=== PATIENT | female | born 1955 | race Caucasian/White ===

== ENCOUNTER 2019-09-10 07:13 | Inpatient (IN) ==
--- OUTSIDE RECORDS SUMMARY | 2019-09-10 07:15 | External Medical Summary | Continuity of Care Document ---
:1955 Author Name Aicha Muse, Provider Address Unavailable Unavailable , Care Team Providers Name Role Phone Juvenal Logan M.D., I. Unavailable [email or web address] Unavailable Unavailable Unavailable Unavailable Assessments Assessment Narrative:61 yo female with negative hematuria workup.Assessed Problems:Microscopic hematuria Problems Microscopic hematuria (599.72) (R31.29) Hypertension (401.9) (I10) Arthritis (716.90) (M19.90) Allergies and Adverse Reactions No Known Drug Allergies (Allergy) Medications hydroCHLOROthiazide 25 MG Oral Tablet Refills: 0 Procedures History of Back Surgery Status: Complete d History of Tubal Ligation Status: Comple bennie Immunizations Immunizations not documented Family History Father Family history of cardiac disorder (V17.49) (Z82.49) Status: Active Family history of hypertension (V17.49) (Z82.49) Status: Act aneesh Social History - Smoking Status Current every day smoker Interventions Follow-ups/ReferralsFollow-up as needed; Done: 01 Dec 2016 Plan of Treatment Planned Observations Planned Goals not documented Results No Known Results Results not documented Encounters Appointment; Juvenal Logan M.D. 01-Dec-2016 15:30 Encounter Diagnosis: Problem not documented
--- OUTSIDE RECORDS SUMMARY | 2019-09-10 07:15 | External Medical Summary | Continuity of Care Document ---
:1955 Author Name Aicha Muse, Provider Address Unavailable Unavailable , Care Team Providers Name Role Phone Juvenal Logan M.D., I. Unavailable [email or web address] Unavailable Unavailable Unavailable Unavailable Unavailable Assessments Assessment Narrative:61 yo female with negative hematuria workup.Assessed Problems:Microscopic hematuria Problems Arthritis (716.90) (M19.90) Hypertension (401.9) (I10) Microscopic hematuria (599.72) (R31.29) Allergies and Adverse Reactions No Known Drug [...]
[2019-09-10 07:42] LABS: Basophils # (auto) 0.02 K/uL (0-0.2); Basophils % (auto) 0.2 %; Eosinophils # (auto) 0.26 K/uL (0-0.5); Eosinophils % (auto) 2.7 %; Hematocrit (blood only) 44.3 % (37-47); Immature Granulocytes # (auto) 0.02 K/uL (0.00-0.02); Immature Granulocytes % (auto) 0.2 %; Lymphocytes # (auto) 2.41 K/uL (1.2-3.4); Lymphocytes % (auto) 25.3 %; Mean Corpuscular Hemoglobin 34.7 pg (25-34); Mean Corpuscular Hgb Conc 36.1 g/dL (32-36); Mean Corpuscular Volume 96.1 fL (80-100); Mean Platelet Volume 10.6 fL (7.4-10.4); Monocytes # (auto) 0.68 K/uL (0.11-0.59); Monocytes % (auto) 7.2 %; Neutrophils # (auto) 6.12 K/uL (1.4-6.5); Neutrophils % (auto) 64.4 %; Platelet Count 188 K/uL (130-400); RDW Standard Deviation 42.2 fL (36.4-46.3); Red Blood Count 4.61 M/uL (4.2-5.4); White Blood Count 9.51 K/uL (4.8-10.8)
[2019-09-10 07:54] LABS: D Dimer 720 ug/L FEU (0-500)
--- NOTE | 2019-09-10 07:57 | XRay Report ---
XR chest 1V portable HISTORY: Atypical Chest Pain COMPARISON: None. FINDINGS: The lungs are clear. Cardiac silhouette is normal in size. No pleural effusions. No pneumot horax. IMPRESSION: No acute process. ACT 112: Negative or not required by law. Electronically signed by: Wu Jones M.D. 09/10/2019 7:56 AM
[2019-09-10 07:58] LABS: Albumin Level 3.7 gm/dl (3.4-5.0); Creatinine Clr Calc Pharmacy 66.2 ml/min; Est GFR (African American) 65.9; Est GFR (Non-African American) 56.9; Potassium 3.5 mmol/L (3.5-5.1)
[2019-09-10 08:03] LABS: Albumin Globulin Ratio 0.8 (0.9-2); Bilirubin,Total 0.7 mg/dl (0.2-1); Globulin 4.5 gm/dl (2.5-4.0); Total Protein 8.2 gm/dl (6.4-8.2); Troponin I 0.018 ng/ml (0-0.045)
[2019-09-10] MEDS ORDERED: OPTIRAY 320 125ml IV PRN (08:43)
--- NOTE | 2019-09-10 09:30 | CT Scan Report ---
CT ANGIOGRAPHY OF THE CHEST, PULMONARY EMBOLUS PROTOCOL CLINICAL HISTORY: CP, elevated D dimer COMPARISON STUDY: Chest radiograph September 10, 2019. TECHNIQUE: Following IV administration of 120 mL of Optiray-320, helical axial images of the chest we re obtained utilizing the pulmonary embolus protocol. Maximal intensity projections and sagittal and coronal reformats were viewed on an independent 3D workstation. IV contrast was administered withou t complication. Automated exposure control was utilized for the study. A dose lowering technique wa s utilized adhering to the principles of ALARA. CT DOSE: 600.35 mGy.cm FINDINGS: No pulmonary emboli are identified. There is no evidence for thoracic or dissection althou gh aortic opacification is suboptimal. Size of the heart is at the upper limits of normal. There is n o pericardial effusion. No pneumothorax or pleural effusion is noted. There is mild upper lobe predom inant emphysema. Diffuse bronchial wall thickening is noted with scattered mucous plugging. There is no consolidation to suggest pneumonia. There are no suspicious pulmonary nodules. Bony thorax and upp er abdomen are unremarkable. Asymmetric enlargement of the right thyroid lobe is noted. There is a po ssible right lobe thyroid nodule that measures approximately 2.3 cm. IMPRESSION: 1. No pulmonary emboli identified. 2. Mild upper lobe predominant emphysema. 3. Diffuse bronchial wall thickening. No consolidation to suggest pneumonia. ACT 112: Negative or not required by law. Electronically signed by: Skip Redmond M.D. 09/10/2019 9:28 AM
[2019-09-10] MEDS ORDERED: NITROGLYCERIN SL 0.4 MG/TAB TAB SL STA (10:56)
[2019-09-10] MEDS ORDERED: ASPIRIN CHEW 324 MG PO STA (10:56)
--- NOTE | 2019-09-10 11:06 | History & Physical Report ---
Date of Service September 10, 2019 Assessment & Plan (1) Chest pain: 63yo C female with history of HTN, tobacco use, family history of premature CAD presenting with one month of intermittent chest discomfort. Troponin detectable at 0.018, EKG with some changes from prior, ST-T waves in lateral leads. No STEMI. -Observation to medical floor with telemetry monitoring -Trend troponin q 8 hours x 3 sets. Will initiate heparin gtt if values continue to increase. -Check Lipids and AIC with AM labs for risk stratification -Smoking cessation -2D echocardiogram -Pending results of troponin - stress test in AM, patient would most likely need to have Dobutamine testing, functional limitation from knee pain -Consider Cardiology consultation pending results of above studies Present on Admission?: Yes (2) Shortness of breath: Patient with history of COPD. Has had URI symptoms for the past 2 weeks. No wheezing appreciated on exam. Adequate saturation on room air with no evidence of respiratory distress. -Continue Mucinex -Duoneb q 6 hours -Continue Symbicort -Smoking cessation counseling Present on Admission?: Yes (3) HTN (hypertension): Blood pressure stable at present -Continue HCTZ 25mg po daily -Continue to monitor Present on Admission?: Yes (4) COPD (chronic obstructive pulmonary disease): As above. Patient with history of COPD, cough with sputum. No wheeze -DuoNeb -Symbicort -Mucinex -Smoking cessation F/E/N - Heplock. Monitor electrolytes and replete as needed. AHA diet, NPO after midnight for possible stress vs cath Ppx - Low risk for DVT Code - Full per discussion with patient Dispo - Observation to medical floor with telemetry History of Present Illness Chief Complaint: chest pain Primary Care Provider: DO Millie Vazquezjaime Wu is a pleasant 63yo C female with history of COPD, HTN presenting with chest pain. Symptoms have been intermittent, ongoing and increasing in severity for the past month. Bandlike across upper chest with occasional epigastric discomfort with belching. 10/10 in severity at its worst. Typically occurs in the evenings while she is watching TV or while walking around. She reports occasionally feeling numbness and tingling across her chest as well. Pain is associated with occasional diaphoresis and SOB, radiation down her left arm on occasion. Occurs at rest as well as with exertion. She had an episode this AM around 0100 which was 10/10 in severity, prompted her to come to the ER. Patient is fairly sedentary, states that her activity is limited by knee pain as well as her chest discomfort. She is unable to clearly state that the pain occurs with exertion. Also with cough productive for yellow sputum for the last two weeks. She denies worsening SOB or wheeze. ER Course: ASA 324mg, Nitro 0.4mg Allergies Allergy/AdvReac Type Severity Reaction Status Date / Time No Known Allergies Allergy Unverified 09/10/19 07:56 Home Medications Home Medications Medication Instructions Recorded Confirmed Type budesonide-formoterol [Symbicort] 1 puff INHALATION BID 09/10/19 09/10/19 History guaifenesin [Mucinex] 600 mg PO Q12H PRN 09/10/19 09/10/19 History hydrochlorothiazide 25 mg PO DAILY 09/10/19 09/10/19 History Past Med/Surg History Family History (Updated 09/10/19 @ 12:07 by Serenity Fuentes DO) Father Coronary heart disease [place] at age 45 Sister Coronary heart disease [place] in early 60's Social History Preferred Language: Tajik Communication Ability: Effective [employer] Required: No Beliefs That Will Affect Care: None Current Living Situation: Spouse Feels Safe at Home: Yes Safety Concerns: Feels Safe At This Time Smoking Status: Current every day smoker Tobacco Type: cigarettes ; Cigarettes Per Day: 12 ; Do You Dip or Chew Tobacco: No ; Hx Alcohol Use: No Hx Substance Use: No Review of Systems Review of Systems: All systems reviewed & are unremarkable except as noted in HPI & below Physical Exam Physical Exam: General: patient resting comfortably, NAD, non-toxic in appearance, AA&O x 4, anxious in appearance Skin: warm, dry, intact, no rashes or lesions HEENT: NC/AT, PERRL, EOMI, anicteric sclera, conjunctiva without injection, external ear normal to inspection and nontender, nares patent, moist mucus membranes, dentition intact, no oropharyngeal lesions, neck supple, trachea midline, no LAD, no thyromegaly, no JVD Heart: +S1/S2, regular, no m/r/g, no CW pain, no epigastric discomfort Lungs: diminished breath sounds, equal air entry bilaterally, no rales/rhonchi/wheezes Abd: +BS, soft, NT/ND, no masses/organomegaly/ascites Ext: warm, 2+ pulses in UE/LE bilaterally, no clubbing/cyanosis or edema Neuro: nonfocal, patient AA&O x 4, speech intact, no facial droop, moving all extremities on command with equal strength 5/5 Results & Data Vital Signs (Past 12 Hours) Vital Signs Temp Pulse Pulse Resp BP BP Pulse Ox 09/10/19 11:00 70 18 148/94 H 94 09/10/19 10:30 72 18 137/103 H 97 09/10/19 10:00 73 18 146/104 H 93 09/10/19 09:45 81 18 145/96 H 94 09/10/19 09:30 73 18 146/102 H 94 09/10/19 09:00 74 18 158/99 H 94 09/10/19 08:30 82 18 132/97 93 09/10/19 08:00 74 18 137/102 H 93 09/10/19 07:30 78 78 18 147/93 H 95 09/10/19 07:21 36.5 C 80 24 152/105 H 94 Laboratory Results Lab Results 09/10/19 09/10/19 09/10/19 Range/Units 07:29 07:29 07:29 WBC 9.51 (4.8-10.8) K/uL RBC 4.61 (4.2-5.4) M/uL Hgb 16.0 (12.0-16.0) g/dL Hct 44.3 (37-47) % MCV 96.1 (80-100) fL MCH 34.7 H (25-34) pg MCHC 36.1 H (32-36) g/dL RDW Std Deviation 42.2 (36.4-46.3) fL RDW Coeff of Brad 12.0 (11.5-14.5) % Plt Count 188 (130-400) K/uL MPV 10.6 H (7.4-10.4) fL Immature Gran % (Auto) 0.2 % Neut % (Auto) 64.4 % Lymph % (Auto) 25.3 % [place] % (Auto) 7.2 % Eos % (Auto) 2.7 % Baso % (Auto) 0.2 % Immature Gran # (Auto) 0.02 (0.00-0.02) K/uL Neut # (Auto) 6.12 (1.4-6.5) K/uL Lymph # (Auto) 2.41 (1.2-3.4) K/uL [place] # (Auto) 0.68 H (0.11-0.59) K/uL Eos # (Auto) 0.26 (0-0.5) K/uL Baso # (Auto) 0.02 (0-0.2) K/uL D-Dimer 720 H* (0-500) ug/L FEU Sodium 137 (136-145) mmol/L Potassium 3.5 (3.5-5.1) mmol/L Chloride 99 (98-107) mmol/L Carbon Dioxide 34 H (21-32) mmol/L Anion Gap 5.0 (3-11) BUN 20 H (7-18) mg/dl Creatinine 1.05 (0.6-1.2) mg/dl Est Cr Clr Drug Dosing 66.2 ml/min Est GFR ( Amer) 65.9 Est GFR (Non-Af Amer) 56.9 BUN/Creatinine Ratio 19.0 (10-20) Glucose 131 H (70-99) mg/dl Calcium 9.0 (8.5-10.1) mg/dl Total Bilirubin 0.7 (0.2-1) mg/dl AST 10 L (15-37) U/L ALT 25 (12-78) U/L Alkaline Phosphatase 109 (45-117) U/L Troponin I 0.018 (0-0.045) ng/ml Total Protein 8.2 (6.4-8.2) gm/dl Albumin 3.7 (3.4-5.0) gm/dl Globulin 4.5 H (2.5-4.0) gm/dl Albumin/Globulin Ratio 0.8 L (0.9-2) Lipase 169 (73-393) U/L Diagnostic Findings XR chest 1V portable HISTORY: Atypical Chest Pain COMPARISON: None. FINDINGS: The lungs are clear. Cardiac silhouette is normal in size. No pleural effusions. No pneumothorax. IMPRESSION: No acute process. ACT 112: Negative or not required by law. Electronically signed by: Wu Jones M.D. 09/10/2019 7:56 AM Dictated: 09/10/[address] ANGIOGRAPHY OF THE CHEST, PULMONARY EMBOLUS PROTOCOL CLINICAL HISTORY: CP, elevated D dimer COMPARISON STUDY: Chest radiograph September 10, 2019. TECHNIQUE: Following IV administration of 120 mL of Optiray-320, helical axial images of the chest were obtained utilizing the pulmonary embolus protocol. Maximal intensity projections and sagittal and coronal reformats were viewed on an independent 3D workstation. IV contrast was administered without complication. Automated exposure control was utilized for the study. A dose lowering technique was utilized adhering to the principles of ALARA. CT DOSE: 600.35 mGy.cm FINDINGS: No pulmonary emboli are identified. There is no evidence for thoracic or dissection although aortic opacification is suboptimal. Size of the heart is at the upper limits of normal. There is no pericardial effusion. No pneumothorax or pleural effusion is noted. There is mild upper lobe predominant emphysema. Diffuse bronchial wall thickening is noted with scattered mucous plugging. There is no consolidation to suggest pneumonia. There are no suspicious pulmonary nodules. Bony thorax and upper abdomen are unremarkable. Asymmetric enlargement of the right thyroid lobe is noted. There is a possible right lobe thyroid nodule that measures approximately 2.[address] ANGIOGRAPHY OF THE CHEST, PULMONARY EMBOLUS PROTOCOL CLINICAL HISTORY: CP, elevated D dimer COMPARISON STUDY: Chest radiograph September 10, 2019. TECHNIQUE: Following IV administration of 120 mL of Optiray-320, helical axial images of the chest were obtained utilizing the pulmonary embolus protocol. Maximal intensity projections and sagittal and coronal reformats were viewed on an independent 3D workstation. IV contrast was administered without complication. Automated exposure control was utilized for the study. A dose lowering technique was utilized adhering to the principles of ALARA. CT DOSE: 600.35 mGy.cm FINDINGS: No pulmonary emboli are identified. There is no evidence for thoracic or dissection although aortic opacification is suboptimal. Size of the heart is at the upper limits of normal. There is no pericardial effusion. No pneumothorax or pleural effusion is noted. There is mild upper lobe predominant emphysema. Diffuse bronchial wall thickening is noted with scattered mucous plugging. There is no consolidation to suggest pneumonia. There are no suspicious pulmonary nodules. Bony thorax and upper abdomen are unremarkable. Asymmetric enlargement of the right thyroid lobe is noted. There is a possible right lobe thyroid nodule that measures approximately 2.3 cm. IMPRESSION: 1. No pulmonary emboli identified. 2. Mild upper lobe predominant emphysema. 3. Diffuse bronchial wall thickening. No consolidation to suggest pneumonia. ACT 112: Negative or not required by law. ECG Additional Comments: Study with NSR at 86bpm, normal axis, LR=745, DON=867, FKz=124, ST depressions in I, aVL, V5 and V6 Code Status & VTE Plan Code Status Full Code VTE Prophylaxis Plan VTE Prophylaxis will be ordered: No PG Care Time/CCT Total # of Minutes Spent Total Time Spent with Patient: Total time spent is greater than 50% in coordination of care (as documented) at patient's floor/unit and/or counseling patient: Coding Level of Care Code 13110 OBS Care - Level 2 Diagnoses Chest pain R07.9 Chest pain type: unspecified Shortness of breath R06.02 HTN (hypertension) I10 Hypertension type: essential hypertension COPD (chronic obstructive pulmonary disease) J44.9 COPD type: unspecified COPD (1) COPD (chronic obstructive pulmonary disease) COPD type: unspecified COPD Qualified Code(s): J44.9 - Chronic obstructive pulmonary disease, unspecified (2) Chest pain Chest pain type: unspecified Qualified Code(s): R07.9 - Chest pain, unspecified (3) HTN (hypertension) Hypertension type: essential hypertension Qualified Code(s): I10 - Essential (primary) hypertension
[2019-09-10] MEDS ORDERED: ALBUT/IPRATROP 3MG/0.5MG NEB 3 ML VIAL NEB SCH (11:15)
[2019-09-10] MEDS ORDERED: ALBUT/IPRATROP 3MG/0.5MG NEB 3 ML VIAL ONE (11:26)
[2019-09-10] MEDS ORDERED: ACETAMINOPHEN 325 MG TAB PO PRN (11:48)
[2019-09-10] MEDS ORDERED: ONDANSETRON INJ 2 MG/ML 2 ML VIAL IV PRN (11:48)
--- NOTE | 2019-09-10 11:58 | Emergency Department Note ---
ED Visit Note I assisted Dr. Wetzel with the care of this patient . Resident Activity Tracking Resident Involvement: Resident Care Provided Care Provided: Adult ED : Chest pain Qualifiers: Chest pain type: unspecified Qualified Code(s): R07.9 - Chest pain, unspecified
[2019-09-10] MEDS ORDERED: guaiFENesin 600 MG TABCR PO PRN (12:45)
[2019-09-10 12:46] LABS: Magnesium 2.1 mg/dl (1.8-2.4); Phosphorus 3.1 mg/dl (2.5-4.9)
--- NOTE | 2019-09-10 13:19 | Emergency Department Note ---
Entered by Missy Whalen acting as a scribe for ED Provider Note CHIEF COMPLAINT: Chest pain HISTORY OF PRESENT ILLNESS: The patient is a 63 year old female who presents to the Emergency Room with complaints of intermittent chest pain starting 1 month ago. The patient reports that she is experiencing chest pain that radiates across her chest. She describes this pain as a pressure that sometimes becomes sharp and tingly. She explains that she experiences episodes of this chest pain a few times per week that last 15 to 20 minutes. She notes that she is sometimes short of breath and diaphoretic when she experiences this pain. She adds that she gets this pain mostly in the evening. The patient reports that nothing improves her pain. She states that she has been coughing for the past 2 weeks. She explains that her cough is producing a green colored mucous. She notes that she also has had some rhinorrhea. She adds that she has been smoking cigarettes since she was a teenager and smokes about pack of cigarettes per day. Pt denies LOC, headache, fevers, chills, visual changes, neck pain, nausea, vomiting, abdominal pain, back pain, melena, hematochezia, urinary symptoms, numbness, weakness, lymphadenopathy, rash, calf pain, recent long travel or other complaints. REVIEW OF SYSTEMS: See HPI for pertinent positives and negatives. A total of ten systems were reviewed and were otherwise negative. PMHx/PSHx: COPD, HTN. SOCIAL HISTORY: Patient lives at home. Current everyday smoker. PHYSICAL EXAM: GENERAL: Awake, alert, well-appearing, in no distress HENT: Normocephalic, atraumatic. Oropharynx unremarkable. EYES: PERRL. Normal conjunctiva. Sclera non-icteric. NECK: Inspection normal. Non-tender. Supple. No nuchal rigidity. FROM. No masses. RESPIRATORY: : Diminished breath sounds. Productive cough of green sputum. Clear to auscultation. No wheezes. No rales. Normal respiratory effort. CARDIAC: Normal rate. Normal rhythm. No murmurs. No rubs. Extremities warm and well perfused. Pulses equal. No JVD. GI: Soft, non-distended. No tenderness to palpation. No rebound or guarding. No masses. RECTAL: Deferred. MUSCULOSKELETAL: Atraumatic. Chest examination reveals no tenderness. The back is symmetrical on inspection without obvious abnormality. There is no CVA tenderness to palpation. No joint edema. LOWER EXTREMITIES: Chronic venous discoloration. Calves are equal size bilaterally and non-tender. No edema. NEURO: Normal sensorium. No sensory or motor deficits noted. SKIN: No rash or jaundice noted. EMERGENCY DEPARTMENT COURSE: 719: Past medical records reviewed. The patient was evaluated in room A2, and a complete history and physical examination were performed. 0945: I reevaluated the patient at this time. 1012: I discussed the patients case with Dr. Alfredo WEST hospitalist. She will evaluate the patient for further management. MEDICAL DECISION MAKING: A2 Prior records/ancillary studies reviewed. Outpatient ECG obtained from her primary office. No ischemic changes noted. Triage Nursing notes reviewed and agree them. Additional history obtained from the family. The patient's history was concerning for chest pain. Differential diagnosis: Etiologies such as cardiac ischemia, aortic dissection, pulmonary embolism, pneumonia, pneumothorax, musculoskeletal, infections, pericarditis, myocarditis, esophageal rupture, gastrointestinal, as well as others were entertained. Physical examination: As above. ER treatment provided: Upon initial evaluation the patient's chest discomfort was resolved. No medication given. On reassessment the patient was stable. Diagnostic interpretation by me: The electrocardiogram was concerning for lateral T wave inversions. The labs revealed an unremarkable CBC and chemistry panel. The d-dimer was mildly elevated. Troponin within normal limits. Imaging studies: Chest x-ray negative for acute process. CT PE study was performed and negative for pulmonary embolism or other acute pathology. The patient has chest pain intermittently. Her ECG is different than prior. She will need further management in the hospital. Consultation: A consultation was placed with the hospitalist. The case was discussed and diagnostics were reviewed. The patient was evaluated in the ER for further tr eatment. The patient was seen and examined with Dr. Peña, resident physician. We discussed the case and treatments ordered, reviewed the results, and determine the disposition. Please refer to the resident's note for additional details. I have been directly involved with the management and disposition as well as independently evaluated the patient as documented in this note. IMPRESSION: Chest pain, Shortness of breath, Acute electrocardiogram changes PLAN: Being Evaluated by Hospitalist The scribe's documentation has been prepared under my direction and personally reviewed by me in its entirety. I confirm that the note above accurately reflects all work, treatment, procedures, and medical decision making performed by me. Impression & Plan Chest pain, Shortness of breath, Acute electrocardiogram changes Past Med/Surg History Family History (Updated 09/10/19 @ 12:07 by Serenity Fuentes DO) Father Coronary heart disease [place] at age 45 Sister Coronary heart disease [place] in early 60's Social History Preferred Language: [place] Communication Ability: Effective Family Psychologist Required: No Beliefs That Will Affect Care: None Current Living Situation: Spouse Feels Safe at Home: Yes Safety Concerns: Feels Safe At This Time Smoking Status: Current every day smoker Tobacco Type: cigarettes ; Cigarettes Per Day: 12 ; Do You Dip or Chew Tobacco: No ; Hx Alcohol Use: No Hx Substance Use: No Results & Data Vital Signs Vital Signs - 24 hr 09/10/19 07:21 09/10/19 07:30 09/10/19 08:00 Temperature 36.5 C Temperature Source Oral Pulse Rate 80 78 Pulse Rate [Apical] 78 74 Pulse Rhythm Regular Pulse Rhythm [Apical] Regular Regular Pulse Strength [Apical] Normal Normal Respiratory Rate 24 18 18 Respiratory Effort / Characteristics Non-Labored Spontaneous Non-Labored Spontaneous Respiratory Depth Normal Normal Respiratory Pattern Regular Regular Blood Pressure 152/105 H Blood Pressure [Right Arm] 147/93 H 137/102 H Blood Pressure Mean 120 Blood Pressure Mean [Right Arm] 111 113 Blood Pressure Position [Right Arm] Lying Lying Pulse Oximetry 94 95 93 Oxygen Delivery Method Room Air Room Air Room Air Sepsis Recent Fever Within 48 Hours No Sepsis New/Unexplained Change in Mental Status No Sepsis Action Taken by Nursing No Action Required 09/10/19 08:30 09/10/19 09:00 09/10/19 09:30 Temperature Temperature Source Pulse Rate Pulse Rate [Apical] 82 74 73 Pulse Rhythm Pulse Rhythm [Apical] Regular Regular Regular Pulse Strength [Apical] Normal Normal Normal Respiratory Rate 18 18 18 Respiratory Effort / Characteristics Non-Labored Spontaneous Non-Labored Spontaneous Non-Labored Spontaneous Respiratory Depth Normal Normal Normal Respiratory Pattern Regular Regular Regular Blood Pressure Blood Pressure [Right Arm] 132/97 158/99 H 146/102 H Blood Pressure Mean Blood Pressure Mean [Right Arm] 108 118 116 Blood Pressure Position [Right Arm] Lying Lying Lying Pulse Oximetry 93 94 94 Oxygen Delivery Method Room Air Room Air Room Air Sepsis Recent Fever Within 48 Hours Sepsis New/Unexplained Change in Mental Status Sepsis Action Taken by Nursing 09/10/19 09:45 09/10/19 10:00 Temperature Temperature Source Pulse Rate Pulse Rate [Apical] 81 73 Pulse Rhythm Pulse Rhythm [Apical] Regular Regular Pulse Strength [Apical] Normal Normal Respiratory Rate 18 18 Respiratory Effort / Characteristics Non-Labored Spontaneous Non-Labored Spontaneous Respiratory Depth Normal Normal Respiratory Pattern Regular Regular Blood Pressure Blood Pressure [Right Arm] 145/96 H 146/104 H Blood Pressure Mean Blood Pressure Mean [Right Arm] 112 118 Blood Pressure Position [Right Arm] Lying Lying Pulse Oximetry 94 93 Oxygen Delivery Method Room Air Room Air Sepsis Recent Fever Within 48 Hours Sepsis New/Unexplained Change in Mental Status Sepsis Action Taken by Snf Medications Current Medication List: was personally reviewed by me Laboratory Data Attestation: I reviewed the patient's lab results. Result diagrams: 09/10/19 07:29 09/10/19 07:29 Lab Results 09/10/19 09/10/19 09/10/19 Range/Units 07:29 07:29 07:29 WBC 9.51 (4.8-10.8) K/uL RBC 4.61 (4.2-5.4) M/uL Hgb 16.0 (12.0-16.0) g/dL Hct 44.3 (37-47) % MCV 96.1 (80-100) fL MCH 34.7 H (25-34) pg MCHC 36.1 H (32-36) g/dL RDW Std Deviation 42.2 (36.4-46.3) fL RDW Coeff of Brad 12.0 (11.5-14.5) % Plt Count 188 (130-400) K/uL MPV 10.6 H (7.4-10.4) fL Immature Gran % (Auto) 0.2 % Neut % (Auto) 64.4 % Lymph % (Auto) 25.3 % Dawson % (Auto) 7.2 % Eos % (Auto) 2.7 % Baso % (Auto) 0.2 % Immature Gran # (Auto) 0.02 (0.00-0.02) K/uL Neut # (Auto) 6.12 (1.4-6.5) K/uL Lymph # (Auto) 2.41 (1.2-3.4) K/uL Dawson # (Auto) 0.68 H (0.11-0.59) K/uL Eos # (Auto) 0.26 (0-0.5) K/uL Baso # (Auto) 0.02 (0-0.2) K/uL D-Dimer 720 H* (0-500) ug/L FEU Sodium 137 (136-145) mmol/L Potassium 3.5 (3.5-5.1) mmol/L Chloride 99 (98-107) mmol/L Carbon Dioxide 34 H (21-32) mmol/L Anion Gap 5.0 (3-11) BUN 20 H (7-18) mg/dl Creatinine 1.05 (0.6-1.2) mg/dl Est Cr Clr Drug Dosing 66.2 ml/min Est GFR ( Amer) 65.9 Est GFR (Non-Af Amer) 56.9 BUN/Creatinine Ratio 19.0 (10-20) Glucose 131 H (70-99) mg/dl Calcium 9.0 (8.5-10.1) mg/dl Phosphorus (2.5-4.9) mg/dl Magnesium (1.8-2.4) mg/dl Total Bilirubin 0.7 (0.2-1) mg/dl AST 10 L (15-37) U/L ALT 25 (12-78) U/L Alkaline Phosphatase 109 (45-117) U/L Troponin I 0.018 (0-0.045) ng/ml Total Protein 8.2 (6.4-8.2) gm/dl Albumin 3.7 (3.4-5.0) gm/dl Globulin 4.5 H (2.5-4.0) gm/dl Albumin/Globulin Ratio 0.8 L (0.9-2) Lipase 169 (73-393) U/L 09/10/19 Range/Units 07:29 WBC (4.8-10.8) K/uL RBC (4.2-5.4) M/uL Hgb (12.0-16.0) g/dL Hct (37-47) % MCV (80-100) fL MCH (25-34) pg MCHC (32-36) g/dL RDW Std Deviation (36.4-46.3) fL RDW Coeff of Brad (11.5-14.5) % Plt Count (130-400) K/uL MPV (7.4-10.4) fL Immature Gran % (Auto) % Neut % (Auto) % Lymph % (Auto) % Dawson % (Auto) % Eos % (Auto) % Baso % (Auto) % Immature Gran # (Auto) (0.00-0.02) K/uL Neut # (Auto) (1.4-6.5) K/uL Lymph # (Auto) (1.2-3.4) K/uL Dawson # (Auto) (0.11-0.59) K/uL Eos # (Auto) (0-0.5) K/uL Baso # (Auto) (0-0.2) K/uL D-Dimer (0-500) ug/L FEU Sodium (136-145) mmol/L Potassium (3.5-5.1) mmol/L Chloride (98-107) mmol/L Carbon Dioxide (21-32) mmol/L Anion Gap (3-11) BUN (7-18) mg/dl Creatinine (0.6-1.2) mg/dl Est Cr Clr Drug Dosing ml/min Est GFR ( Amer) Est GFR (Non-Af Amer) BUN/Creatinine Ratio (10-20) Glucose (70-99) mg/dl Calcium (8.5-10.1) mg/dl Phosphorus 3.1 (2.5-4.9) mg/dl Magnesium 2.1 (1.8-2.4) mg/dl Total Bilirubin (0.2-1) mg/dl AST (15-37) U/L ALT (12-78) U/L Alkaline Phosphatase (45-117) U/L Troponin I (0-0.045) ng/ml Total Protein (6.4-8.2) gm/dl Albumin (3.4-5.0) gm/dl Globulin (2.5-4.0) gm/dl Albumin/Globulin Ratio (0.9-2) Lipase (73-393) U/L Administered Medications Albuterol (Duoneb) 3 ml NEB Q6R [id number] Stop: 10/10/19 12:59 Last Admin: 09/10/19 13:22 Dose: 3 ml Documented by: [id number] Ioversol (Optiray 320 125ml) 120 ml IV ONCE PRN PRN Reason: Interaction Checking Stop: 09/14/19 08:42 Last Admin: 09/10/19 08:43 Dose: 120 ml Documented by: [id number] Discontinued Medications Aspirin (Aspirin) 324 mg PO NOW STA Stop: 09/10/19 10:57 Last Admin: 09/10/19 11:22 Dose: 324 mg Documented by: [id number] Nitroglycerin (Nitrostat) 0.4 mg SL NOW STA Stop: 09/10/19 10:57 Last Admin: 09/10/19 11:21 Dose: 0.4 mg Documented by: [id number] Imaging Data Radiologist's Impression: Radiology results as stated below per my review and the radiologist's interpretation: CT ANGIOGRAPHY OF THE CHEST, PULMONARY EMBOLUS PROTOCOL CLINICAL HISTORY: CP, elevated D dimer COMPARISON STUDY: Chest radiograph September 10, 2019. TECHNIQUE: Following IV administration of 120 mL of Optiray-320, helical axial images of the chest were obtained utilizing the pulmonary embolus protocol. Max imal intensity projections and sagittal and coronal reformats were viewed on an independent 3D workstation. IV contrast was administered without complication. Automated exposure control was utilized for the study. A dose lowering technique was utilized adhering to the principles of ALARA. CT DOSE: 600.35 mGy.cm FINDINGS: No pulmonary emboli are identified. There is no evidence for thoracic or dissection although aortic opacification is suboptimal. Size of the heart is at the upper limits of normal. There is no pericardial effusion. No pneumothorax or pleural effusion is noted. There is mild upper lobe predominant emphysema. Diffuse bronchial wall thickening is noted with scattered mucous plugging. There is no consolidation to suggest pneumonia. There are no suspicious pulmonary nod ules. Bony thorax and upper abdomen are unremarkable. Asymmetric enlargement of the right thyroid lobe is noted. There is a possible right lobe thyroid nodule that measures approximately 2.3 cm. IMPRESSION: 1. No pulmonary emboli identified. 2. Mild upper lobe predominant emphysema. 3. Diffuse bronchial wall thickening. No consolidation to suggest pneumonia. ACT 112: Negative or not required by law. Electronically signed by: Skip Redmond M.D. 09/10/2019 9:28 AM XR chest 1V portable HISTORY: Atypical Chest Pain COMPARISON: None. FINDINGS: The lungs are clear. Cardiac silhouette is normal in size. No pleural effusions. No pneumothorax. IMPRESSION: No acute process. ACT 112: Negative or not required by law. Electronically signed by: Wu Jones M.D. 09/10/2019 7:56 AM ECG Data Attestation: I personally reviewed and interpreted this ECG as follows: Indication: + chest pain Rate (beats per minute): 86 Rhythm: normal sinus ECG Intervals/blocks: + Incomplete right bundle branch block ECG [place]: + Normal ECG ST segments: + ST depression (subtle ST depression in aVL and V6.) and + T- wave inversions (in aVL) ECG Findings: + Q waves (anterior q waves.) Comparison ECG Date: from (09/07/2019) Change: the following changes noted (When compared to outpatient clinic EKG done on 09/07/2019: ST and T wave changes are new.) Additional Comments: Repeat EKG per my interpretation: Normal sinus rhythm at 86 beats per minute. Normal axis. Incomplete right bundle branch block. Anterior Q wave. TWI in aVL with some subtle ST depression in aVL and V6. Blood Pressure Blood Pressure Findings: Elevated blood pressure Blood Pressure Disposition: further management by hospitalist Discharge Plan Visit Data *Final* Discharge Date/Time: 09/10/19 11:23 Chief Complaint: Chest Pain Stated Complaint: CHEST PAIN ED Provider: Jozef Wetzel ED Midlevel Provider: Adilene Peña Discharge Problem: Chest pain, Shortness of breath, Acute electrocardiogram changes Patient Disposition: Admitted As Inpatient Discharge Instructions Interventions: ED Discharge Assessment Last Done: 09/10/19 11:23 Discharge Problem: Chest pain Qualifiers: Chest pain type: unspecified Qualified Code(s): R07.9 - Chest pain, unspecified The scribe's documentation has been prepared under my direction and personally reviewed by me in its entirety. I confirm that the note above accurately reflects all work, treatment, procedures, and medical decision making performed by me.
[2019-09-10] MEDS: ALBUT/IPRATROP 3MG/0.5MG NEB 3 ML VIAL NEB SCH ×2 (13:22→20:17)
[2019-09-10] MEDS ORDERED: NITROGLYCERIN 2% OINTMENT 30GM TUBE ONE (18:34)
[2019-09-10 18:37] LABS: Basophils # (auto) 0.01 K/uL (0-0.2); Basophils % (auto) 0.1 %; Eosinophils # (auto) 0.22 K/uL (0-0.5); Eosinophils % (auto) 2.4 %; Hematocrit (blood only) 42.9 % (37-47); Hemoglobin 14.9 g/dL (12.0-16.0); Immature Granulocytes # (auto) 0.02 K/uL (0.00-0.02); Immature Granulocytes % (auto) 0.2 %; Lymphocytes # (auto) 2.49 K/uL (1.2-3.4); Lymphocytes % (auto) 26.9 %; Mean Corpuscular Volume 95.1 fL (80-100); Mean Platelet Volume 10.7 fL (7.4-10.4); Monocytes # (auto) 0.77 K/uL (0.11-0.59); Monocytes % (auto) 8.3 %; Neutrophils # (auto) 5.76 K/uL (1.4-6.5); Neutrophils % (auto) 62.1 %; Platelet Count 180 K/uL (130-400); RDW Coefficient of Variation 12.2 % (11.5-14.5); RDW Standard Deviation 41.9 fL (36.4-46.3); Red Blood Count 4.51 M/uL (4.2-5.4); White Blood Count 9.27 K/uL (4.8-10.8)
[2019-09-10] MEDS: NITROGLYCERIN 2% OINTMENT 30GM TUBE EXT SCH ×2 (18:39→23:32)
[2019-09-10] MEDS ORDERED: HEPARIN IV BOLUS 6,000 UNITS in SYRINGE 0 ML IV ONE (18:40)
[2019-09-10 18:56] LABS: Partial Thromboplastin Ratio 0.9; Partial Thromboplastin Time 24.7 Seconds (21.0-31.0); Prothrombin Time 10.2 Seconds (9.0-12.0)
[2019-09-10] MEDS: HEPARIN SODIUM/DEXTROSE 25,000 UNITS/500 ML BAG IV SCH (19:08)
[2019-09-10 19:13] LABS: Mean Corpuscular Hgb Conc 34.7 g/dL (32-36)
--- NOTE | 2019-09-10 20:01 | Electrocardiogram Report ---
Test Reason : Blood Pressure : / mmHG Vent. Rate : 086 BPM Atrial Rate : 086 BPM P-R Int : 170 ms QRS Dur : 116 ms QT Int : 378 ms P-R-T Axes : 071 078 089 degrees QTc Int : 452 ms Normal sinus rhythm Incomplete right bundle branch block Abnormal ECG No previous ECGs available Confirmed by Billy Swann ([id number]) on 09/10/2019 8:00:46 PM Referred By: Confirmed By:Ashwin Swann
--- NOTE | 2019-09-10 20:04 | Electrocardiogram Report ---
Test Reason : Blood Pressure : / mmHG Vent. Rate : 086 BPM Atrial Rate : 086 BPM P-R Int : 178 ms QRS Dur : 114 ms QT Int : 400 ms P-R-T Axes : 069 074 093 degrees QTc Int : 478 ms Normal sinus rhythm Incomplete right bundle branch block Abnormal ECG When compared with ECG of 10-SEP-2019 07:19, (unconfirmed) No significant change was found Confirmed by Billy Swann ([id number]) on 09/10/2019 8:04:00 PM Referred By: REFERRED SELF Confirmed By:Ashwin Swann
[2019-09-11 00:33] LABS: Partial Thromboplastin Ratio 1.5; Partial Thromboplastin Time 40.2 Seconds (21.0-31.0)
[2019-09-11] MEDS: ALBUT/IPRATROP 3MG/0.5MG NEB 3 ML VIAL NEB SCH ×4 (01:09→20:03)
[2019-09-11] MEDS ORDERED: HEPARIN IV BOLUS 6,000 UNITS in SYRINGE 0 ML IV ONE (01:30)
[2019-09-11] MEDS: NITROGLYCERIN 2% OINTMENT 30GM TUBE EXT SCH ×2 (05:32→12:24)
[2019-09-11 07:41] LABS: Basophils # (auto) 0.01 K/uL (0-0.2); Basophils % (auto) 0.1 %; Eosinophils # (auto) 0.14 K/uL (0-0.5); Eosinophils % (auto) 1.2 %; Hematocrit (blood only) 41.2 % (37-47); Hemoglobin 14.6 g/dL (12.0-16.0); Immature Granulocytes # (auto) 0.04 K/uL (0.00-0.02); Immature Granulocytes % (auto) 0.4 %; Lymphocytes # (auto) 2.79 K/uL (1.2-3.4); Lymphocytes % (auto) 24.6 %; Mean Corpuscular Hgb Conc 35.4 g/dL (32-36); Mean Corpuscular Volume 95.8 fL (80-100); Mean Platelet Volume 10.7 fL (7.4-10.4); Monocytes # (auto) 0.65 K/uL (0.11-0.59); Monocytes % (auto) 5.7 %; Platelet Count 185 K/uL (130-400); RDW Coefficient of Variation 12.2 % (11.5-14.5); RDW Standard Deviation 42.4 fL (36.4-46.3); White Blood Count 11.33 K/uL (4.8-10.8)
[2019-09-11 07:54] LABS: Estimated Average Glucose 126 mg/dl
[2019-09-11 08:02] LABS: Partial Thromboplastin Ratio 2.2
[2019-09-11 08:08] LABS: BUN Creatinine Ratio 19.7 (10-20); Calcium 9.3 mg/dl (8.5-10.1); Creatinine Clr Calc Pharmacy 73.1 ml/min; Est GFR (African American) 74.4; Est GFR (Non-African American) 64.2; Potassium 3.5 mmol/L (3.5-5.1)
[2019-09-11 08:09] LABS: Partial Thromboplastin Time 59.7 Seconds (21.0-31.0)
[2019-09-11] MEDS: FLUTICASONE/VILANTEROL 100/25MCG 14 PUFFS/INHALER INH SCH (08:20)
[2019-09-11] MEDS: ASPIRIN 81 MG ECTAB PO SCH (08:20)
--- NOTE | 2019-09-11 10:36 | XCELERA ---
[id number]\[id number]
[2019-09-11] MEDS: HEPARIN SODIUM/DEXTROSE 25,000 UNITS/500 ML BAG IV SCH (12:23)
--- NOTE | 2019-09-11 12:56 | Pre Anesthesia Assessment ---
Date of Service September 11, 2019 Pre Sedation Assessment Vital Signs Temp Pulse Pulse Resp BP BP Pulse Ox 09/11/19 12:45 85 18 115/77 88 L 09/11/19 11:34 37.0 C 94 H 20 113/75 94 09/11/19 07:36 36.5 C 91 H 20 123/78 92 09/11/19 06:55 78 19 96 09/11/19 04:17 36.5 C 81 20 122/76 93 09/11/19 01:12 79 18 93 09/10/19 23:30 76 09/10/19 23:15 36.6 C 76 16 121/75 91 09/10/19 20:20 77 16 93 09/10/19 19:15 36.4 C L 75 19 129/77 92 09/10/19 15:01 36.7 C 71 19 112/77 94 09/10/19 15:00 66 09/10/19 13:25 70 16 97 Cardiovascular + regular rate Respiratory + respiratory effort normal Pre-Sedation Airway Assessment Smoking Status: Current every day smoker Hx Sleep Apnea: No Hx Difficult Intubation: No Short, Thick Neck: No Thyromental Distance: > or= 3.5 Finger Breadths Oral Cavity: + WNL Mallampati Class: III ASA: ASA2 NPO Status Date of Last Intake of Fluids: 09/11/19 Time of Last Intake of Fluids: 07:00 Date of Last Intake of Solid Food: 09/10/19 Time of Last Intake of Solid Foods: 18:00 Procedure Planning Contraindications for Sedation: none Current Medications Reviewed: Yes Notes The planned sedation has been discussed with the patient. Informed Consent was obtained. I have identified the patient, determined the appropriateness of sedation and have assessed the patient immediately prior to the procedure. All medicine(s) and interventions are by my order.
[2019-09-11] MEDS ORDERED: NiCARDipine HCL INJ 2.5 MG/ML 10 ML AMP ONE (13:03)
[2019-09-11] MEDS ORDERED: HEPARIN (PORCINE) 1000 UNIT/ML 10 ML (CATH LAB USE ONLY) ONE (13:03)
--- NOTE | 2019-09-11 13:03 | Cardiology Consultation ---
Date of Consultation September 11, 2019 Assessment & Plan (1) Non-STEMI (non-ST elevated myocardial infarction): Although patient symptoms of chest discomfort are very atypical, she does have elevation in her cardiac biomarkers. She appears to have some risk factors for coronary disease to include hypertension, tobacco abuse and a family history of premature coronary disease. Her EKG was not definitive for any ischemic process however her biomarkers continue to rise. I think the most prudent course of action would be coronary angiography. I did describe the risk benefits and alternatives of the procedure to the patient she is willing to proceed. She does have preserved LV systolic function. Nuclear is any role for JUANCARLOS inhibition. However, change of her antihypertensive regimen to include a beta- selam would seem reasonable. Based on the results of her angiography we may also recommend high-dose atorvastatin and a daily aspirin. (2) Mitral regurgitation: Mild to moderate on her echocardiogram. I do believe this contributes to her symptoms. This continues will need to be followed over time. History of Present Illness Reason for Consultation: Chest pain Requesting Physician: Carmen Attending Physician: Antoinette Morales MD History of Present Illness The patient is a 63-year-old woman without a known history of cardiac disease who is been experiencing symptoms of chest pains for approximately 1 month. Patient states that the episodes of chest pain are generally "sharp" in nature. They tend to be fairly fleeting in nature but more recently become prolonged and more severe. Does not appear to be any specific precipitating factor. They are not exclusively exertional and can clear at rest. She does not appear to have associated symptoms such as pleuritic chest pain, dizziness, lightheadedness or shortness of breath. Does not appear to be any specific radiation to the arm or jaw. She reports being able to perform a moderate workload of activity. Her job is physically demanding and she does not report exertional symptoms such as limiting dyspnea or chest pain with that activity. She does not describe orthopnea or paroxysmal nocturnal dyspnea. She has not noticed any swelling in her lower extremities. She does feel as though she has palpitations on occasion. These been present for a long time but are very fleeting in nature. Her episode yesterday was more severe than most. Seem to be fairly prolonged in nature and she continues to have some symptoms of chest discomfort. Allergies Allergy/AdvReac Type Severity Reaction Status Date / Time No Known Allergies Allergy Unverified 09/10/19 07:56 Home Medications Home Medications Medication Instructions Recorded Confirmed Type budesonide-formoterol [Symbicort] 1 puff INHALATION BID 09/10/19 09/10/19 History guaifenesin [Mucinex] 600 mg PO Q12H PRN 09/10/19 09/10/19 History hydrochlorothiazide 25 mg PO DAILY 09/10/19 09/10/19 History Patient History Medical History COPD (chronic obstructive pulmonary disease) HTN (hypertension) Surgical History No pertinent past surgical history Family History Father Coronary heart disease MD at age 45 Sister Coronary heart disease MD in early 60's Social History Preferred Language: Vietnamese Communication Ability: Effective Vacuum Bottle Assembler Required: No Beliefs That Will Affect Care: None Current Living Situation: Spouse Feels Safe at Home: Yes Safety Concerns: Feels Safe At This Time Smoking Status: Current every day smoker Tobacco Type: cigarettes ; Cigarettes Per Day: 12 ; Do You Dip or Chew Tobacco: No ; Hx Alcohol Use: No Hx Substance Use: No Review of Systems Review of Systems: All systems reviewed & are unremarkable except as noted in HPI & below She reported a "chill" 1 time over the past few days. However, no subjective fevers. No upper airway congestion. No sick contacts. Physical Exam Physical Exam: She is alert and oriented x3. Mood affect appear normal. She answered all questions appropriately. HEENT: Sclerae are anicteric. Pupils are equal and reactive to light and accommodation. Extraocular movements were intact. Neuro: Cranial nerves intact Neck: Examination of the submandibular region did not reveal any significant lymphadenopathy. Carotids are palpable bilaterally and free of bruits on auscultation. There was no evidence of jugular venous distention. The thyroid was not enlarged. Lungs: Lungs are clear to auscultation bilaterally. There are no rales wheezes or rhonchi. She has normal respiratory effort without use of accessory muscles. There is normal pulmonary excursion. Cardiac: The rhythm was regular. S1 and S2 were normal. There are no murmurs on examination. The PMI was not markedly displaced on palpation. Abdomen: The abdomen was soft and nontender. Extremities: Patient has bilateral radial pulses that are equal in intensity. There is no evidence cyanosis or clubbing. There was no evidence of significant peripheral edema bilaterally. Skin: There are no rashes noted on examination today. Results & Data Vital Signs (Past 12 Hours) Vital Signs Temp Pulse Resp BP BP Pulse Ox 09/11/19 12:45 85 18 115/77 88 L 09/11/19 11:34 37.0 C 94 H 20 113/75 94 09/11/19 07:36 36.5 C 91 H 20 123/78 92 09/11/19 06:55 78 19 96 09/11/19 04:17 36.5 C 81 20 122/76 93 09/11/19 01:12 79 18 93 Laboratory Results Abnormal Lab Results 09/10/19 09/10/19 09/10/19 15:46 18:23 18:23 WBC 9.27 RBC 4.51 Hgb 14.9 Hct 42.9 MCV 95.1 MCH 33.0 MCHC 34.7 RDW Std Deviation 41.9 RDW Coeff of Brad 12.2 Plt Count 180 MPV 10.7 H Immature Gran % (Auto) 0.2 Neut % (Auto) 62.1 Lymph % (Auto) 26.9 [place] % (Auto) 8.3 Eos % (Auto) 2.4 Baso % (Auto) 0.1 Immature Gran # (Auto) 0.02 Neut # (Auto) 5.76 Lymph # (Auto) 2.49 [place] # (Auto) 0.77 H Eos # (Auto) 0.22 Baso # (Auto) 0.01 PT 10.2 INR 1.0 APTT 24.7 PTT Ratio 0.9 Sodium Potassium Chloride Carbon Dioxide Anion Gap BUN Creatinine Est Cr Clr Drug Dosing Est GFR ( Amer) Est GFR (Non-Af Amer) BUN/Creatinine Ratio Glucose Estimat Average Glucose Hemoglobin A1c Calcium Troponin I 1.490 H* Triglycerides Cholesterol LDL Cholesterol, Calc VLDL Cholesterol, Calc HDL Cholesterol Cholesterol/HDL Ratio 09/11/19 09/11/19 09/11/19 00:08 07:28 07:28 WBC 11.33 H RBC 4.30 Hgb 14.6 Hct 41.2 MCV 95.8 MCH 34.0 MCHC 35.4 RDW Std Deviation 42.4 RDW Coeff of Brad 12.2 Plt Count 185 MPV 10.7 H Immature Gran % (Auto) 0.4 Neut % (Auto) 68.0 Lymph % (Auto) 24.6 [place] % (Auto) 5.7 Eos % (Auto) 1.2 Baso % (Auto) 0.1 Immature Gran # (Auto) 0.04 H Neut # (Auto) 7.70 H Lymph # (Auto) 2.79 [place] # (Auto) 0.65 H Eos # (Auto) 0.14 Baso # (Auto) 0.01 PT INR APTT 40.2 H PTT Ratio 1.5 Sodium 135 L Potassium 3.5 Chloride 97 L Carbon Dioxide 33 H Anion Gap 5.0 BUN 19 H Creatinine 0.95 Est Cr Clr Drug Dosing 73.1 Est GFR ( Amer) 74.4 Est GFR (Non-Af Amer) 64.2 BUN/Creatinine Ratio 19.7 Glucose 141 H Estimat Average Glucose Hemoglobin A1c Calcium 9.3 Troponin I Triglycerides 89 Cholesterol 182 LDL Cholesterol, Calc 112 VLDL Cholesterol, Calc 18 HDL Cholesterol 52 Cholesterol/HDL Ratio 4 09/11/19 09/11/19 09/11/19 07:28 07:28 10:46 WBC RBC Hgb Hct MCV MCH MCHC RDW Std Deviation RDW Coeff of Brad Plt Count MPV Immature Gran % (Auto) Neut % (Auto) Lymph % (Auto) [place] % (Auto) Eos % (Auto) Baso % (Auto) Immature Gran # (Auto) Neut # (Auto) Lymph # (Auto) [place] # (Auto) Eos # (Auto) Baso # (Auto) PT INR APTT 59.7 H* PTT Ratio 2.2 Sodium Potassium Chloride Carbon Dioxide Anion Gap BUN Creatinine Est Cr Clr Drug Dosing Est GFR ( Amer) Est GFR (Non-Af Amer) BUN/Creatinine Ratio Glucose Estimat Average Glucose 126 Hemoglobin A1c 6.0 H Calcium Troponin I 2.380 H* Triglycerides Cholesterol LDL Cholesterol, Calc VLDL Cholesterol, Calc HDL Cholesterol Cholesterol/HDL Ratio Diagnostic Findings Echocardiogram performed today revealed preserved LV systolic function without regional wall motion abnormalities. Mild to moderate mitral vegetation Chest x-ray obtained at time admission not any acute cardiopulmonary process CT angiogram did not reveal any evidence of pulmonary embolus. No definite evidence of aortic dissection or aortic disease. ECG Additional Comments: EKG is obtained as admission revealed sinus rhythm with some very minor ST segment changes in the lateral precordial leads. PG Care Time/CCT Total # of Minutes Spent Total Time Spent with Patient: Total time spent is greater than 50% in coordination of care (as documented) at patient's floor/unit and/or counseling patient: Coding Level of Care Code 60203 Inpt Consult Level 5 Diagnoses Non-STEMI (non-ST elevated myocardial infarction) I21.4 Mitral regurgitation I34.0
[2019-09-11] MEDS ORDERED: fentaNYL citrate 100 MCG/2 ML VIAL ONE (13:04)
[2019-09-11] MEDS ORDERED: NITROGLYCERIN/D5W 100MCG/ML 20ML SYR ONE (13:04)
[2019-09-11] MEDS ORDERED: MIDAZOLAM HCL 1 MG/ML 2ML VIAL ONE ×2 (13:04→14:15)
[2019-09-11] MEDS ORDERED: ATROPINE SULFATE 0.1 MG/ML 10ML SYR IV ONE (13:47)
--- NOTE | 2019-09-11 14:03 | Cardiac Catheterization ---
[facility] Data: Rotary Helper Cardiac Status Clinical evaluation leading to the procedure CAD Presenation: Non STEMI Diagnostic Physicians Name: Billy Swann MD Closure Device Recommendations: PCI without planned CABG Cardiac Cath Procedure Full Procedure Date September 11, 2019 Pre-Procedure Diagnosis Pre-Procedure Diagnosis: Non STEMI AUC Score AUC Score: 8 Post-Procedure Diagnosis Post-Procedure Diagnosis: Moderate CAD Procedure(s) Performed Procedure(s) Performed: Coronary Angiography and Left Heart Cath Laboratory Helper Billy Swann MD Civilian Technician(s) none Estimated Blood Loss Estimated Blood Loss: 5cc Medication(s) Medication(s): Fentanyl, Heparin, Lidocaine 1%, Nicardipine, Nitroglycerin and Versed Summary of Findings Access was obtained via the right radial artery Equipment used: 5 [place] 4 Coronary angiography Left main: Left main coronary artery was normal in size and caliber. It bifurcated normally into left anterior descending and left circumflex arteries Left anterior descending: Left anterior descending was a large transapical vessel. It produced a large first diagonal branch. Produce several diminutive additional diagonal branches. Distal to the first diagonal branch there is approximately a 50 to 60% stenosis. Should be noted that the left coronary system provided left to right collaterals filling the distal right coronary artery Left circumflex: Left circumflex vessel was a nondominant vessel. There was a large first obtuse marginal and a large second obtuse marginal. The second obtuse marginal had approximately 70% stenosis in its proximal portion. Right coronary artery: The right coronary artery was a large dominant vessel. It was 100% occluded in its proximal portion. He was reconstituted via left to right collaterals. Conclusions: Multivessel coronary disease involving nonobstructive lesion in the LAD, lesion in the second obtuse marginal and total occlusion of the right coronary artery Elevated left ventricular end-diastolic pressure Hemodynamics Rest Ao:: 101/64 mmHg Final Ao: 111/70 mmHg LV: 119 over 7 mmHg with left ventricular end-diastolic pressure of 20 mmHg Recommendations Recommendations: PCI without planned CABG Radiation Exposure (mGy) q Contrast (mls) 70cc Procedural Complication(s) None I attest to the content of the Intraoperative Record and any orders documented therein. Any exceptions are noted below. [facility] Card Cath Procedure Codes Cardiac Catheterization Procedure 1: Cardiovascular Cath Procedures: 14014 Coronaries and LHC (+/-LV) Moderate Sedation Procedure 1: Sedation/Anesthesia: 92234 Mod Sedation by the same physician;Init15 Min Child Age 5 & Up PG Care Time/CCT Total # of Minutes Spent Total Time Spent with Patient: Total time spent is greater than 50% in coordination of care (as documented) at patient's floor/unit and/or counseling patient:
[2019-09-11] MEDS ORDERED: TICAGRELOR 90 MG TAB PO ONE (14:29)
--- NOTE | 2019-09-11 14:35 | Post Anesthesia Assessment ---
Date of Service September 11, 2019 Post Sedation Assessment Vital Signs Temp Pulse Pulse Resp BP BP Pulse Ox 09/11/19 12:45 85 18 115/77 88 L 09/11/19 11:34 98.6 F 94 H 20 113/75 94 09/11/19 07:36 97.7 F 91 H 20 123/78 92 09/11/19 06:55 78 19 96 09/11/19 04:17 97.7 F 81 20 122/76 93 09/11/19 01:12 79 18 93 09/10/19 23:30 76 09/10/19 23:15 97.9 F 76 16 121/75 91 09/10/19 20:20 77 16 93 09/10/19 19:15 97.5 F L 75 19 129/77 92 09/10/19 15:01 98.1 F 71 19 112/77 94 09/10/19 15:00 66 Recovery Score Activity: Moves 4 extremities Respiration: Deep Breath/Cough Circulation: +/-20% PreAnes Value Consciousness: Fully Awake Oxygen Saturation: O2 needed for >90% Discharge Sedation Level of Care: Fast Track Phase II Post Sedation Plan On clinical assessment, the patient appears to have tolerated the sedation without complications. Patient is recovering as anticipated. Patient will continue to be monitored by nursing and may be discharged when sedation discharge criteria are met per below protocol. Upon Completions of procedure up to 15 minutes continue every 5 minute vital signs and the P.A.R. score; then discharge to a Phase I or Fast Track to Phase II per the following guidelines: * Discharge Patient to appropriate Phase II area if PAR is 8 or greater or return to pre- procedure baseline. The post - procedure orders will be as directed. * If PAR score is less than 8 or not return to pre-procedure baseline then patient will follow Phase I monitoring till PAR is reached for Phase II. The Phase I may be done in procedure room or may call to secure a Phase I area. * If naloxone or flumazenil are used for reversal, hold in Phase I for continued monitoring from when last reversal dose was given for a minimum of 60 minutes or longer pending the nurse and/or physician discretion of patient condition before discharge to Phase II. Please call the Sedation Physician to re-evaluate and complete post-note for discharge to Phase II area. Do NOT discharge from procedure sedation or Phase 1 until post- sedation evaluation note is complete by procedure /sedation MD Sedation Discharge Instructions to be given to the patient at discharge to home.
--- NOTE | 2019-09-11 14:42 | Cardiac Catheterization ---
[facility] Data: Station Tender Cardiac Status Clinical evaluation leading to the procedure CAD Presenation: Non STEMI Anginal Classification: CCS IV Heart Failure: No Cardiogenic Shock within 24 Hours: No Cardiac Arrest within 24 Hours: No Imaging Studies Past 6 Months: Yes Stress Studies Past 6 Months: No Diagnostic Physicians Name: Billy Wagner MD Status: Elective Closure Device Percutaneous Entry Location: Radial Closure Device: Radial Band Recommendations: PCI without planned CABG PCI Indication: PCI for high risk Non-MICHAEL Lesion Segment Name: Mid RCA Culprit Artery: Yes Stenosis Prior to Rx (%): 100 Chronic Total Occlusion: No IVUS: No FFR: No Pre-Procedure MELODY Flow: 0 Previously Treated Lesion: No Lesion Complexity: Non-High/Non-C Lesion Length (mm): 15 Thrombus Present: Yes Bifurcation Lesion: No Guidewire Across Lesion: Stenosis Post-Procedure (%): 0 Post-Procedure MELODY Flow: 3 Devices(s) Deployed: Yes Yes Intraprocedure Events Significant Disection: No Perforation: No Cardiac Cath Procedure Full Procedure Date September 11, 2019 Pre-Procedure Diagnosis Pre-Procedure Diagnosis: Non STEMI AUC Score AUC Score: 8 Post-Procedure Diagnosis Post-Procedure Diagnosis: Severe CAD and Successful PCI Procedure(s) Performed Procedure(s) Performed: Drug Eluting Stent Home And School Visitor Billy Wagner MD Papier Mache' Molder(s) none Estimated Blood Loss Estimated Blood Loss: 10 Medication(s) Medication(s): Fentanyl, Heparin, Nicardipine, Nitroglycerin and Versed Medication(s): Ticagrelor Summary of Findings Indication: High risk NSTEMI Access: 6 Fr slender right radial artery Catheters: AR-1 guide Findings: For full details of patient's coronary angiography please cath report dictated by Dr. Swann. Briefly, patient found to have multi-vessel disease including a 100% acute on chronic mid RCA occlusion. Decision to proceed with PCI. -- PCI -- Antithrombotic therapy: Heparin, ticagrelor Procedure: RCA cannulated with AR-1 guide Airline Counter Agent 50 wire passed across lesion into distal vessel Mid RCA lesion predilated with 2.5 compliant balloon Dilated lesion stented with 4.0 x 18 mm Xience Apurva drug-eluting Stent post-dilated with 4.0 noncompliant balloon IC vasodilators administered for spasm Post procedure MELODY 3 flow, stent well expanded with minimal residual stenosis and no apparent cardiac complications. Arterial Closure: TR band Summary: 1. Successful PCI of mid RCA acute on chronic occlusion with single drug-eluting stent (4.0 x 18 mm Xience Apurva). Recommendations: To PCU for continued monitoring Loaded with ticagrelor 180 mg in cath Continue dual-antiplatelet therapy for at least 1 year Continue statin, and ASCVD risk factor modification Consult cardiac Rehab Hemodynamics Rest Ao:: 121/79/96 Final Ao: 93/60/75 LV: -- Recommendations Recommendations: PCI without planned CABG Specimens Specimens: None Radiation Exposure (mGy) 1872 Contrast (mls) 110 Fluids (cc crystalloids) Fluids (cc crystalloids): 132 Drains Drains: None Anesthesia Moderate Procedural Complication(s) None Disposition PCU I attest to the content of the Intraoperative Record and any orders documented therein. Any exceptions are noted below. [facility] Card Cath Procedure Codes Moderate Sedation Procedure 1: Sedation/Anesthesia: 53931 Mod Sedation by a different physician ;Init15 Min Child Age 5&Up Procedure 2: Sedation/Anesthesia: 40685 Mod Sedation by a different physician;Ea Additional 15 Minutes Stenting Procedure 1: Cardiovascular Stent Procedures: 27891 Perc transluminal revascularization of acute sub/total occl, aMI PG Care Time/CCT Total # of Minutes Spent Total Time Spent with Patient: Total time spent is greater than 50% in coordination of care (as documented) at patient's floor/unit and/or counseling patient:
[2019-09-11] MEDS ORDERED: SODIUM CHLORIDE 0.9% 1000ML 1,000 ML IV SCH (14:45)
--- NOTE | 2019-09-11 19:50 | Hospitalist Progress Note ---
Date of Service September 11, 2019 Assessment & Plan (1) Chest pain: 63yo C female with history of HTN, tobacco use, family history of premature CAD presenting with one month of intermittent chest discomfort. Troponin detectable at 0.018 initially and then arnaldo to 2.38 after admission. EKG with some changes from prior, ST-T waves in lateral leads. No STEMI. Admitted and had cardiac cath with acute on chronic mid-RCA 100% occlusion, SANDY placed -continue tele monitoring -DAPT for at least 1 year with ASA, Brilinta -start atorvastatin 40mg daily -consider starting metoprolol -cardiac rehab -counseled on smoking cessation -follow trop till peaks -lipids with LDL 112 Hgb A1C 6.0% in preDM range-counseled on dietary changes, weight loss -2D echocardiogram with preserved EF, mild-mod MR Appreciate Cardiology management (2) Shortness of breath: Patient with history of COPD. Has had URI symptoms for the past 2 weeks. Now with wheezing, some rhonchi, and O2 requirement post-cath -continue nebs -make Mucinex 1200mg bid scheduled -Continue Symbicort -Smoking cessation counseling -supplemental O2 to keep POx>90% (3) HTN (hypertension): Blood pressure controlled -holding home HCTZ -Continue to monitor (4) COPD (chronic obstructive pulmonary disease): As above. (5) Mitral regurgitation: mild-mod on ECHO -follow as outpt (6) Non-STEMI (non-ST elevated myocardial infarction): as above (7) Current smoker: counseled on cessation as above (8) DVT prophylaxis: Ppx - Low risk for DVT, was on heparin gtt prior to cath Code - Full per discussion with patient Dispo -admit given NSTEMI and stent palcement Subjective Had cardiac cath today and had completely occluded, acute on chronic mid-RCA with SANDY placement. Now no chest pain at all. Having some productive cough and wheezing for the last 2 days, was taking Mucinex at home since yesterday. Requiring some O2 this evening. Denies abd pain, no nausea, no SOB Tele with NST, ST, PACs, rates 70s-100s I discussed her case with Cardiology earlier in the day Review of Systems Review of Systems: All systems reviewed & are unremarkable except as noted in HPI & below Physical Exam Constitutional: WD/WN, vitals as above no acute distress Eyes: + anicteric sclerae Neck: trachea midline, no thyromegaly Respiratory: normal respiratory effort Auscultation: + rhonchi (a few upper airway) and + wheezes (diffusely); no crackles Cardiovascular: RRR, no murmur, no edema Chest (Breasts): Chest: normal inspection of chest Gastrointestinal (Abdomen): normal bowel sounds, soft, nontender, no hepatosplenomegaly Musculoskeletal: Extremities: extremities normal to inspection (except TR band on right wrist); no cyanosis and no clubbing Skin: no rashes, warm and dry Neurologic: moves all extremities and awake; no focal motor deficits Psychiatric: A+Ox3, euthymic affect Lymphatic: no lymphedema Results & Data Vital Signs (Past 12 Hours) Vital Signs Temp Pulse Pulse Pulse Resp BP BP 09/11/19 18:55 79 18 129/76 09/11/19 17:53 36.6 C 87 18 126/82 09/11/19 16:55 85 16 129/80 09/11/19 16:25 80 16 139/85 09/11/19 15:55 74 16 133/88 09/11/19 15:43 36.5 C 76 76 18 118/78 09/11/19 15:40 82 16 112/75 09/11/19 15:25 82 16 123/68 09/11/19 15:10 36.5 C 75 16 115/72 09/11/19 14:55 80 16 141/99 H 09/11/19 14:47 80 16 170/93 H 09/11/19 14:40 80 16 110/83 09/11/19 12:45 85 18 115/77 09/11/19 11:34 37.0 C 94 H 20 113/75 Pulse Ox 09/11/19 18:55 96 09/11/19 17:53 95 09/11/19 16:55 95 09/11/19 16:25 96 09/11/19 15:55 97 09/11/19 15:43 96 09/11/19 15:40 94 09/11/19 15:25 91 09/11/19 15:10 90 09/11/19 14:55 90 09/11/19 14:47 98 09/11/19 14:40 90 09/11/19 12:45 88 L 09/11/19 11:34 94 Laboratory Results 09/11/19 09/11/19 09/11/19 Range/Units 14:12 10:46 07:28 WBC (4.8-10.8) K/uL RBC (4.2-5.4) M/uL Hgb (12.0-16.0) g/dL Hct (37-47) % MCV (80-100) fL MCH (25-34) pg MCHC (32-36) g/dL RDW Std Deviation (36.4-46.3) fL RDW Coeff of Brad (11.5-14.5) % Plt Count (130-400) K/uL MPV (7.4-10.4) fL Immature Gran % (Auto) % Neut % (Auto) % Lymph % (Auto) % [place] % (Auto) % Eos % (Auto) % Baso % (Auto) % Immature Gran # (Auto) (0.00-0.02) K/uL Neut # (Auto) (1.4-6.5) K/uL Lymph # (Auto) (1.2-3.4) K/uL [place] # (Auto) (0.11-0.59) K/uL Eos # (Auto) (0-0.5) K/uL Baso # (Auto) (0-0.2) K/uL APTT 59.7 H* (21.0-31.0) Seconds PTT Ratio 2.2 Activ Coag Time Kaolin 268 H (94-140) SECONDS Sodium (136-145) mmol/L Potassium (3.5-5.1) mmol/L Chloride (98-107) mmol/L Carbon Dioxide (21-32) mmol/L Anion Gap (3-11) BUN (7-18) mg/dl Creatinine (0.6-1.2) mg/dl Est Cr Clr Drug Dosing ml/min Est GFR ( Amer) Est GFR (Non-Af Amer) BUN/Creatinine Ratio (10-20) Glucose (70-99) mg/dl Estimat Average Glucose mg/dl Hemoglobin A1c (4.5-5.6) % Calcium (8.5-10.1) mg/dl Troponin I 2.380 H* (0-0.045) ng/ml Triglycerides (0-150) mg/dl Cholesterol (0-200) mg/dl LDL Cholesterol, Calc mg/dl VLDL Cholesterol, Calc mg/dl HDL Cholesterol mg/dl Cholesterol/HDL Ratio 09/11/19 09/11/19 09/11/19 Range/Units 07:28 07:28 07:28 WBC 11.33 H (4.8-10.8) K/uL RBC 4.30 (4.2-5.4) M/uL Hgb 14.6 (12.0-16.0) g/dL Hct 41.2 (37-47) % MCV 95.8 (80-100) fL MCH 34.0 (25-34) pg MCHC 35.4 (32-36) g/dL RDW Std Deviation 42.4 (36.4-46.3) fL RDW Coeff of Brad 12.2 (11.5-14.5) % Plt Count 185 (130-400) K/uL MPV 10.7 H (7.4-10.4) fL Immature Gran % (Auto) 0.4 % Neut % (Auto) 68.0 % Lymph % (Auto) 24.6 % [place] % (Auto) 5.7 % Eos % (Auto) 1.2 % Baso % (Auto) 0.1 % Immature Gran # (Auto) 0.04 H (0.00-0.02) K/uL Neut # (Auto) 7.70 H (1.4-6.5) K/uL Lymph # (Auto) 2.79 (1.2-3.4) K/uL [place] # (Auto) 0.65 H (0.11-0.59) K/uL Eos # (Auto) 0.14 (0-0.5) K/uL Baso # (Auto) 0.01 (0-0.2) K/uL APTT (21.0-31.0) Seconds PTT Ratio Activ Coag Time Kaolin (94-140) SECONDS Sodium 135 L (136-145) mmol/L Potassium 3.5 (3.5-5.1) mmol/L Chloride 97 L (98-107) mmol/L Carbon Dioxide 33 H (21-32) mmol/L Anion Gap 5.0 (3-11) BUN 19 H (7-18) mg/dl Creatinine 0.95 (0.6-1.2) mg/dl Est Cr Clr Drug Dosing 73.1 ml/min Est GFR ( Amer) 74.4 Est GFR (Non-Af Amer) 64.2 BUN/Creatinine Ratio 19.7 (10-20) Glucose 141 H (70-99) mg/dl Estimat Average Glucose 126 mg/dl Hemoglobin A1c 6.0 H (4.5-5.6) % Calcium 9.3 (8.5-10.1) mg/dl Troponin I (0-0.045) ng/ml Triglycerides 89 (0-150) mg/dl Cholesterol 182 (0-200) mg/dl LDL Cholesterol, Calc 112 mg/dl VLDL Cholesterol, Calc 18 mg/dl HDL Cholesterol 52 mg/dl Cholesterol/HDL Ratio 4 // Range/Units 00:08 WBC (4.8-10.8) K/uL RBC (4.2-5.4) M/uL Hgb (12.0-16.0) g/dL Hct (37-47) % MCV (80-100) fL MCH (25-34) pg MCHC (32-36) g/dL RDW Std Deviation (36.4-46.3) fL RDW Coeff of Brad (11.5-14.5) % Plt Count (130-400) K/uL MPV (7.4-10.4) fL Immature Gran % (Auto) % Neut % (Auto) % Lymph % (Auto) % [place] % (Auto) % Eos % (Auto) % Baso % (Auto) % Immature Gran # (Auto) (0.00-0.02) K/uL Neut # (Auto) (1.4-6.5) K/uL Lymph # (Auto) (1.2-3.4) K/uL [place] # (Auto) (0.11-0.59) K/uL Eos # (Auto) (0-0.5) K/uL Baso # (Auto) (0-0.2) K/uL APTT 40.2 H (21.0-31.0) Seconds PTT Ratio 1.5 Activ Coag Time Kaolin (94-140) SECONDS Sodium (136-145) mmol/L Potassium (3.5-5.1) mmol/L Chloride (98-107) mmol/L Carbon Dioxide (21-32) mmol/L Anion Gap (3-11) BUN (7-18) mg/dl Creatinine (0.6-1.2) mg/dl Est Cr Clr Drug Dosing ml/min Est GFR ( Amer) Est GFR (Non-Af Amer) BUN/Creatinine Ratio (10-20) Glucose (70-99) mg/dl Estimat Average Glucose mg/dl Hemoglobin A1c (4.5-5.6) % Calcium (8.5-10.1) mg/dl Troponin I (0-0.045) ng/ml Triglycerides (0-150) mg/dl Cholesterol (0-200) mg/dl LDL Cholesterol, Calc mg/dl VLDL Cholesterol, Calc mg/dl HDL Cholesterol mg/dl Cholesterol/HDL Ratio PG Care Time/CCT Total # of Minutes Spent Total Time Spent with Patient: Total time spent is greater than 50% in coordination of care (as documented) at patient's floor/unit and/or counseling patient: Coding Level of Care Code 04748 Subseq Hosp Care Lvl 3 Diagnoses Chest pain R07.9 Chest pain type: unspecified Shortness of breath R06.02 HTN (hypertension) I10 Hypertension type: essential hypertension COPD (chronic obstructive pulmonary disease) J44.9 COPD type: unspecified COPD Mitral regurgitation I34.0 Non-STEMI (non-ST elevated myocardial infarction) I21.4 Current smoker F17.200 DVT prophylaxis Z29.9 (1) Chest pain Chest pain type: unspecified Qualified Code(s): R07.9 - Chest pain, unspecified (2) HTN (hypertension) Hypertension type: essential hypertension Qualified Code(s): I10 - Essential (primary) hypertension (3) COPD (chronic obstructive pulmonary disease) COPD type: unspecified COPD Qualified Code(s): J44.9 - Chronic obstructive pulmonary disease, unspecified
[2019-09-11] MEDS: guaiFENesin 600 MG TABCR PO SCH (21:55)
[2019-09-11] MEDS: TICAGRELOR 90 MG TAB PO SCH (21:55)
[2019-09-12] MEDS: ALBUT/IPRATROP 3MG/0.5MG NEB 3 ML VIAL NEB SCH ×3 (00:55→13:45)
[2019-09-12 07:11] LABS: Basophils # (auto) 0.02 K/uL (0-0.2); Basophils % (auto) 0.2 %; Eosinophils % (auto) 2.4 %; Hemoglobin 14.6 g/dL (12.0-16.0); Immature Granulocytes # (auto) 0.02 K/uL (0.00-0.02); Immature Granulocytes % (auto) 0.2 %; Lymphocytes # (auto) 1.62 K/uL (1.2-3.4); Lymphocytes % (auto) 19.7 %; Mean Corpuscular Hemoglobin 33.4 pg (25-34); Mean Corpuscular Hgb Conc 34.8 g/dL (32-36); Mean Corpuscular Volume 96.1 fL (80-100); Mean Platelet Volume 10.7 fL (7.4-10.4); Monocytes # (auto) 0.67 K/uL (0.11-0.59); Monocytes % (auto) 8.1 %; Neutrophils # (auto) 5.71 K/uL (1.4-6.5); Neutrophils % (auto) 69.4 %; Platelet Count 183 K/uL (130-400); RDW Coefficient of Variation 12.2 % (11.5-14.5); RDW Standard Deviation 42.5 fL (36.4-46.3); Red Blood Count 4.37 M/uL (4.2-5.4); White Blood Count 8.24 K/uL (4.8-10.8)
[2019-09-12 07:50] LABS: Albumin Level 3.3 gm/dl (3.4-5.0); BUN Creatinine Ratio 20.3 (10-20); Calcium 8.8 mg/dl (8.5-10.1); Creatinine Clr Calc Pharmacy 76.2 ml/min; Est GFR (African American) 78.4; Est GFR (Non-African American) 67.6; Magnesium 2.1 mg/dl (1.8-2.4); Potassium 3.7 mmol/L (3.5-5.1)
[2019-09-12 07:58] LABS: Albumin Globulin Ratio 0.7 (0.9-2); Bilirubin,Total 1.1 mg/dl (0.2-1); Globulin 4.4 gm/dl (2.5-4.0); Total Protein 7.7 gm/dl (6.4-8.2); Troponin I 2.71 ng/ml (0-0.045)
[2019-09-12] MEDS: guaiFENesin 600 MG TABCR PO SCH (08:29)
[2019-09-12] MEDS: TICAGRELOR 90 MG TAB PO SCH (08:29)
[2019-09-12] MEDS ORDERED: ATORVASTATIN 40 MG TAB PO SCH (09:00)
[2019-09-12] MEDS: ASPIRIN 81 MG ECTAB PO SCH (09:10)
[2019-09-12] MEDS: FLUTICASONE/VILANTEROL 100/25MCG 14 PUFFS/INHALER INH SCH (09:10)
--- NOTE | 2019-09-12 10:39 | Cardiology Progress Note ---
Date of Service September 12, 2019 Assessment & Plan (1) Non-STEMI (non-ST elevated myocardial infarction): She had occlusion of the right coronary artery. She underwent percutaneous intervention yesterday with good result. She does have some residual disease involving the left circumflex and mid LAD. These lesions do not appear to be flow limiting. She will need to continue on dual anti-platelet therapy and high-dose atorvastatin. I would advocate stopping hydrochlorothiazide and star ting metoprolol succinate 25 milligrams daily. Tobacco cessation is also recommended. That she stay for discharge today. She should continue with activity restriction for couple weeks until follow-up in our clinic. No lifting greater than 5 pounds with the right wrist for 5 days. (2) Mitral regurgitation: Mild to moderate on her echocardiogram. I do believe this contributes to her symptoms. This continues will need to be followed over time. Subjective This point the patient claims to be feeling well. She has not had any breathing trouble. No recurrent chest pain. No pain at the access site in the right wrist. Review of Systems Review of Systems: Per HPI Physical Exam Physical Exam: She is alert and oriented x3. Mood affect appear normal. She answered all questions appropriately. HEENT: Sclerae are anicteric. Pupils are equal and reactive to light and accommodation. Extraocular movements were intact. Neuro: Cranial nerves intact Neck: Examination of the submandibular region did not reveal any significant lymphadenopathy. Carotids are palpable bilaterally and free of bruits on auscultation. There was no evidence of jugular venous distention. The thyroid was not enlarged. Lungs: Lungs are clear to auscultation bilaterally. There are no rales wheezes or rhonchi. She has normal respiratory effort without use of accessory muscles. There is normal pulmonary excursion. Cardiac: The rhythm was regular. S1 and S2 were normal. There are no murmurs on examination. The PMI was not markedly displaced on palpation. Abdomen: The abdomen was soft and nontender. Extremities: Patient has bilateral radial pulses that are equal in intensity. Palpable radial pulse and good perfusion of the right wrist and right hand. There is no evidence cyanosis or clubbing. There was no evidence of significant peripheral edema bilaterally. Skin: There are no rashes noted on examination today. Results & Data Vital Signs (Past 12 Hours) Vital Signs Temp Pulse Pulse Resp BP Pulse Ox 09/12/19 07:14 78 16 94 09/12/19 07:03 36.5 C 82 18 133/88 95 09/12/19 04:15 36.6 C 87 18 118/80 90 09/12/19 00:55 79 20 96 09/11/19 23:44 36.6 C 73 17 127/82 91 09/11/19 23:00 86 Laboratory Results Abnormal Lab Results 09/11/19 09/11/19 09/11/19 10:46 14:12 19:58 WBC RBC Hgb Hct MCV MCH MCHC RDW Std Deviation RDW Coeff of Brad Plt Count MPV Immature Gran % (Auto) Neut % (Auto) Lymph % (Auto) [place] % (Auto) Eos % (Auto) Baso % (Auto) Immature Gran # (Auto) Neut # (Auto) Lymph # (Auto) [place] # (Auto) Eos # (Auto) Baso # (Auto) Activ Coag Time Kaolin 268 H Sodium Potassium Chloride Carbon Dioxide Anion Gap BUN Creatinine Est Cr Clr Drug Dosing Est GFR ( Amer) Est GFR (Non-Af Amer) BUN/Creatinine Ratio Glucose Calcium Magnesium Total Bilirubin AST ALT Alkaline Phosphatase Troponin I 2.380 H* 3.630 H* Total Protein Albumin Globulin Albumin/Globulin Ratio 09/12/19 09/12/19 06:52 06:52 WBC 8.24 RBC 4.37 Hgb 14.6 Hct 42.0 MCV 96.1 MCH 33.4 MCHC 34.8 RDW Std Deviation 42.5 RDW Coeff of Brad 12.2 Plt Count 183 MPV 10.7 H Immature Gran % (Auto) 0.2 Neut % (Auto) 69.4 Lymph % (Auto) 19.7 [place] % (Auto) 8.1 Eos % (Auto) 2.4 Baso % (Auto) 0.2 Immature Gran # (Auto) 0.02 Neut # (Auto) 5.71 Lymph # (Auto) 1.62 [place] # (Auto) 0.67 H Eos # (Auto) 0.20 Baso # (Auto) 0.02 Activ Coag Time Kaolin Sodium 137 Potassium 3.7 Chloride 102 Carbon Dioxide 29 Anion Gap 6.0 BUN 18 Creatinine 0.91 Est Cr Clr Drug Dosing 76.2 Est GFR ( Amer) 78.4 Est GFR (Non-Af Amer) 67.6 BUN/Creatinine Ratio 20.3 H Glucose 112 H Calcium 8.8 Magnesium 2.1 Total Bilirubin 1.1 H D AST 22 ALT 26 Alkaline Phosphatase 106 Troponin I 2.710 H* Total Protein 7.7 Albumin 3.3 L Globulin 4.4 H Albumin/Globulin Ratio 0.7 L PG Care Time/CCT Total # of Minutes Spent Total Time Spent with Patient: Total time spent is greater than 50% in coordination of care (as documented) at patient's floor/unit and/or counseling patient: Coding Level of Care Code 32743 Subseq Hosp Care Lvl 3 Diagnoses Non-STEMI (non-ST elevated myocardial infarction) I21.4 Mitral regurgitation I34.0
[2019-09-12] MEDS ORDERED: METOPROLOL SUCC 25MG EXT REL TAB PO SCH (13:15)
--- NOTE | 2019-09-12 13:39 | Discharge Summary ---
Date of Service September 12, 2019 Admission HPI Per Admitting Provider Rema Wu is a pleasant 63yo C female with history of COPD, HTN presenting with chest pain. Symptoms have been intermittent, ongoing and increasing in severity for the past month. Bandlike across upper chest with occasional epigastric discomfort with belching. 10/10 in severity at its worst. Typically occurs in the evenings while she is watching TV or while walking around. She reports occasionally feeling numbness and tingling across her chest as well. Pain is associated with occasional diaphoresis and SOB, radiation down her left arm on occasion. Occurs at rest as well as with exertion. She had an episode this AM around 0100 which was 10/10 in severity, prompted her to come to the ER. Patient is fairly sedentary, states that her activity is limited by knee pain as well as her chest discomfort. She is unable to clearly state that the pain occurs with exertion. Also with cough productive for yellow sputum for the last two weeks. She denies worsening SOB or wheeze. ER Course: ASA 324mg, Nitro 0.4mg Principal Diagnosis NSTEMI, acute bronchitis Discharge Exam Constitutional WD/WN, vitals as above no acute distress Eyes + anicteric sclerae Neck trachea midline, no thyromegaly Respiratory normal respiratory effort Auscultation: + wheezes (diffusely, much improved from previous); no crackles and no rhonchi Cardiovascular RRR, no murmur, no edema Chest (Breasts) Chest: normal inspection of chest Gastrointestinal (Abdomen) normal bowel sounds, soft, nontender, no hepatosplenomegaly Musculoskeletal Extremities: extremities normal to inspection (except dressing in place on right wrist, no mass or pseudoaneurysm); no cyanosis and no clubbing Skin no rashes, warm and dry Neurologic moves all extremities and awake; no focal motor deficits Psychiatric A+Ox3, euthymic affect Lymphatic no lymphedema Discharge Data Allergies Allergy/AdvReac Type Severity Reaction Status Date / Time No Known Allergies Allergy Unverified 09/10/19 07:56 Consultations 09/10/19 10:13 ED Decision to Admit Stat 09/10/19 18:04 Consult Cardiology Routine 09/11/19 14:43 Consult Cardiac Rehabilitation Routine Procedures Performed Operation Date: 09/11/19 13:00 Actual Procedures p Cath, Left with Cors and Vent - Yasir Swann MD s Cineradiography w/Routine Exam - Yasir Swann MD s Drug Eluting Stent SGl Vessel - Yasir Wagner MD Ordered Studies 09/10/19 08:28 CT angio chest PE protocol Stat 09/11/19 12:36 CL Cath Imgs for PACS use only Routine 09/11/19 12:43 CL Cath Imgs for PACS use only Routine Echocardiogram Chest x-ray Hospital Course (1) Chest pain: 63yo C female with history of HTN, tobacco use, family history of premature CAD presenting with one month of intermittent chest discomfort. Troponin detectable at 0.018 initially and then arnaldo to 2.38 after admission. EKG with some changes from prior, ST-T waves in lateral leads. No STEMI. Admitted and had cardiac cath with acute on chronic mid-RCA 100% occlusion, SANDY placed No significant events on telemetry -Continue DAPT for at least 1 year with ASA, Brilinta -started atorvastatin 40mg daily -Start Toprol-XL 25 mg once daily -cardiac rehab referral placed -counseled on smoking cessation -Troponin peaked at 3.6 -lipids with LDL 112 Hgb A1C 6.0% in preDM range-counseled on dietary changes, weight loss -2D echocardiogram with preserved EF, mild-mod MR Appreciate Cardiology [id number] with cardiology within 2 weeks after discharge -Radial cardiac catheterization restrictions reviewed (2) Shortness of breath: Patient with history of COPD. Has had URI symptoms for the past 2 weeks. Now with wheezing, some rhonchi, and O2 requirement [id number] improved Remains with productive sputum more than her usual -Now weaned off oxygen -continue albuterol as needed at home-prescription called in -Continue Mucinex -Continue Symbicort -Smoking cessation counseling given -Treat with doxycycline 100 mg p.o. twice daily x7 days -Follow-up with PCP (3) HTN (hypertension): Blood pressure mildly elevated Discontinued home HCTZ in favor of starting metoprolol as above -Continue to monitor as an outpatient (4) COPD (chronic obstructive pulmonary disease): As above. (5) Mitral regurgitation: mild-mod on ECHO -follow as outpt (6) Non-STEMI (non-ST elevated myocardial infarction): as above (7) Current smoker: counseled on cessation as above (8) DVT prophylaxis: Ppx - Low risk for DVT, was on heparin gtt prior to cath Code - Full per discussion with patient Dispo -stable for discharge Total Time Total Time Spent Total Time Spent (In Minutes): 35 minutes Total Time Includes: Examination of the Patient, Discharge Planning, Medication Reconciliation and Communication With Other Providers (Cardiology) Discharge Plan Discharge Items Patient Disposition: Home - Self-Care Reason For Visit: CHEST PAIN Discharge Diagnosis: NSTEMI Condition on Discharge: Good Activity: As commented below Lifting: No more than 5 pounds Lifting Comment: for the next five days with the right wrist Exercise/Sports: Wait until after follow-up appointment Driving/Machine Use: Resume 3 days after discharge Non-emergency contact: Primary Care Provider and Business Rules Analyst Call non-emergency contact if: you have any medication questions, your symptoms worsen, your pain is not controlled, your pain is worsening, your pain is unusual for you, your pain is concerning for you, your wound has increased redness, your wound has increased drainage and your wound pain has increased Follow-up/Referrals: Yasir Swann MD [Physician] - (Please follow up within 2 weeks ) Rosalba Brand DO [Primary Care Provider] - Diet: Carb Consistent or DM2 and Heart Healthy Addtl Attending Provider Instructions: You were admitted with chest pain and had a small heart attack. You had a stent placed in your heart to restore blood flow. It is very important that you take all the new medications as prescribed and QUIT SMOKING to prevent future heart attacks. A prescription for doxycycline and an albuterol inhaler were called into your pharmacy for you for your acute bronchitis. Please follow up with the Business Rules Analyst and your PCP within 1-2 weeks. ACTIVITY RECOMMENDATIONS: Excess manipulation of the wrist should be avoided for the next 24-48 hours. * No lifting over 2 pounds (approximately a 1/2 gallon of milk) with the utilized arm for 24 hours. * No strenuous activity such as bowling or tennis for 3 days. * Keep the site of the procedure covered with a bandage for 24 hours. *You may shower the day after the procedure. Do not take a tub bath or submerge the puncture site in water for the next 3 days. *Do not operate any motorized equipment for 3 days. SPECIAL CARE INSTRUCTIONS: The site may be slightly bruised and sore following your procedure. Should any of the following occur, contact the Dr. who performed your procedure. 1. Redness/inflammation, swelling, chills, or fever, or colored drainage at procedure site within 3-7 days after your procedure. 2. Coldness, discoloration, ongoing numbness, severe pain, or swelling. Expect mild tingling of hand and tenderness at the puncture site for up to three days. If this persists beyond three days, or other symptoms develop, notify the Dr. who performed your procedure. BLEEDING: If the procedure site on your wrist begins to bleed, do not panic 1. Place 1 or 2 fingers firmly just slightly above the insertion site to stop the bleeding. You may be able to feel your pulse as you hold pressure. 2. Lift your finger after 5 minutes to see if the bleeding has stopped. 3. Once the bleeding has stopped, gently wipe the wrist area clean with a bandage. * If the bleeding from your wrist does not stop after 10 minutes, or if there is a large amount of bleeding or spurting, call 911 (do not drive yourself to the hospital). SKIN IRRITATION: * You may experience some redness and/or swelling in the area where radiation was administered. If any skin irritation occurs, please contact your family physician. FOLLOW UP VISIT: Keep any scheduled doctor appointments. Home Care: * Take your medications exactly as directed. Don't skip doses. * Remember that recovery after a heart attack takes time. Plan to rest for at lease 4-8 weeks while you recover. Then return to normal activity when your doctor says it's okay. * Ask your doctor about joining a heart rehabilitation program. * Tell your doctor if you are feeling depressed. Feelings of sadness are common after a heart attack, but it is important that you speak to someone if you are feeling overwhelmed by these feelings. * If you are having chest pain, call 911 for an ambulance. Do NOT drive yourself to the hospital. * Ask your family members to learn CPR. * Learn to take your own blood pressure and pulse. Keep a record of your results. Ask your doctor when you should seek emergency medical attention. He or she will tell you which blood pressure reading is dangerous. Lifestyle Changes: * Maintain a healthy weight. Get help to lose any extra pounds. * Cut back on salt. * Limit canned, dried, packaged, and fast foods. * Don't add salt to your food. * Season foods with herbs instead of salt when you cook. * Break the smoking habit. Enroll in a stop-smoking program to improve your chances of success. * Limit fatty foods. * Ask your doctor about having your lipid levels checked regularly. * Build up your activity according to your doctor's recommendation. * Ask your doctor when it's okay to resume sexual activity. * Tell your doctor about any erectile dysfunction (ED) medication you are t aking. Some ED medications are not safe if you take certain heart medications. * Try to manage stress. Follow Up: It is important for you to keep your follow up appointments with your medical provider. Pending Studies at Discharge: No Stand-Alone Forms: Call Back Authorization, [facility], Work/School Release (Inpt), Smoking Cessation Medications and DC Order Prescriptions: New atorvastatin 40 mg Tablet 40 mg PO QAM Qty: 30 RF: 0 aspirin [Ecotrin Low Strength] 81 mg Tablet,Delayed Release (Dr/Ec) 81 mg PO DAILY Qty: 30 RF: 0 metoprolol succinate 25 mg Tablet Extended Release 24 Hr 25 mg PO QAM Qty: 30 RF: 0 Brilinta 90 mg Tablet 90 mg PO BID Qty: 60 RF: 0 doxycycline hyclate 100 mg tablet 100 mg PO BID 7 Days Qty: 14 RF: 0 albuterol sulfate 90 mcg/actuation HFA aerosol inhaler 2 puffs INH QID PRN (Reason: shortness of breath or wheezing) Qty: 18 RF: 0 Continued Symbicort 160-4.5 mcg/actuation HFA aerosol inhaler 1 puff INHALATION BID RF: 0 guaifenesin [Mucinex] 600 mg Tablet Extended Release 12hr 600 mg PO Q12H PRN (Reason: Congestion) RF: 0 Discontinued hydrochlorothiazide 25 mg tablet 25 mg PO DAILY RF: 0 Discharge Orders: Discharge Order (Routine); Ordered 09/12/19 Ordered By: Antoinette Leonard/Other Patient Handouts: A1C Admission Data Admit Date/Time: 09/11/19 19:32 Attending Provider: Antoinette Morales Admit Provider: Serenity Fuentes Primary Care Provider: Rosalba Brand Other Providers: Serenity Fuentes ; Yasir Swann Coding Level of Care Code D/C Day Management >30 mins Diagnoses Chest pain R07.9 Chest pain type: unspecified Shortness of breath R06.02 HTN (hypertension) I10 Hypertension type: essential hypertension COPD (chronic obstructive pulmonary disease) J44.9 COPD type: unspecified COPD Mitral regurgitation I34.0 Non-STEMI (non-ST elevated myocardial infarction) I21.4 Current smoker F17.200 DVT prophylaxis Z29.9
== END 2019-09-12 15:09 | disposition home or self-care (01) | DRG 247 ==
LOC: MERGE 07:13 → ED 07:13 → 2W 07:13 → SUATTDRO 10:29 → 2W 11:23 → 2S 09-11 14:16